=== PATIENT | female | born 1960 | race Two or more races ===

== ENCOUNTER 2024-02-04 22:06 | Emergency (ER) | payer OTHER ==
[~2024-02-04] VITALS: Ht 177.8 cm; Wt 58.0 kg
[2024-02-04 22:18] VITALS: O2SAT 99
[2024-02-05] MEDS: ACETAMINOPHEN 500MG TABLET PO ONE (00:33)
[2024-02-05 06:43] VITALS: BP 126/74; PULSE 61; RESP 20; TEMP 36.61404; O2SAT 100
== END 2024-02-05 06:45 | disposition home or self-care (01) ==
LOC: ER 22:06
DX: R51.9 Headache, unspecified (principal); V98.8XXA Other specified transport accidents, initial encounter; Y93.89 Activity, other specified; Y92.89 Other specified places as the place of occurrence of the external cause; Y99.8 Other external cause status
CPT/HCPCS: 73590; 73610; 99284